=== PATIENT | male | born 1960 | race Caucasian/White ===

== ENCOUNTER → 2016-12-09 | Outpatient (CLI) | payer BC ==
--- NOTE | 2016-12-09 13:21 | PCVCIMAG ---
APPROVED REPORT Exam: Stress Echocardiogram Patient Location: Echo lab Stress Nurse: Emiliana Dominguez RN Status: routine Ht: 5 ft 6 in HR: 73 bpm BP: 132/80 mmHg Rhythm: NSR Medical History Medical History: HTN, tachycardia Cardiac Risk Factors: HTN, Hyperlipidemia, FHX of CAD Pretest Chest Pain Characteristics: No chest pain Exercise History: Indeterminate Procedure The patient underwent an Exercise Stress Test using the Arvind Protocol. Blood pressure, heart rate, and EKG were monitored. An Echocardiogram was performed by chemical research technician in four stages in quad fashion. At peak stress, four selected images were obtained and placed side by side with resting images for comparison. Stress Test Details Stress Test: Exercise stress testing was performed using a Arvind protocol. HR Resting HR: 73 bpmMax Heart Rate (APMHR): 162 bpm Max HR Achieved: 169 bpmTarget HR (85% APMHR): 137 bpm % of APMHR: 104 Recovery HR: 121 bpm HR response to stress: Normal HR response to stress BP Resting BP: 132/80 mmHg Max BP: 168/70 mmHg Recovery BP: 180/70 mmHg ECG Resting ECG: Sinus Rhythm Stress ECG: Sinus Rhythm, NSSTT changes ST Change: Horizontal ST depression Maximum ST Deviation: 2.1 mm Arrhythmia: None Recovery ECG: Sinus Rhythm Recovery ST Change: Non-ischemic Recovery ST Deviation: 0.9 mm Recovery Arrhythmia: None Clinical Reason for Termination: Maximal effort Stress Symptoms: none Exercise duration: 9 min 37 sec Highest Stage Achieved: Stage 4: 4.2 mph at 16% grade. Exercise capacity: 12.1 METs Overall Exercise Capacity for Age: Average Angina Score: None Stress ECG Conclusion Childers Treadmill Score is -1.5 which is Moderate risk. Pre-Stress Echo The resting Echocardiogram showed normal left ventricular contractility with an estimated Ejection Fraction of about 55-60%. Normal wall motion in all segments on baseline images. Post-Stress Echo The stress Echocardiogram showed normal left ventricular contractility with an estimated Ejection Fraction of about 65-70%. Normal augmentation of wall motion in all segments on post stress images. Clinical No clinical or ECG evidence for ischemia. Conclusion Clinical Response: Non-ischemic Exercise Capacity: Average Stress ECG Response: Non-ischemic Stress Echo Images: Non-ischemic No clinical, EKG or echocardiographic evidence for ischemia. No echocardiographic evidence for exercise induced ischemia. Normal stress echocardiogram with maximal exercise stress. <Conclusion> No clinical, EKG or echocardiographic evidence for ischemia. No echocardiographic evidence for exercise induced ischemia. Normal stress echocardiogram with maximal exercise stress.
== END | disposition home or self-care (01) ==
LOC: PCVCIMAG 09:39
PROVIDERS: ATTEND Internal Medicine Cardiovascular Disease
DX: I10 Essential (primary) hypertension (principal); E78.00 Pure hypercholesterolemia, unspecified; R00.0 Tachycardia, unspecified; R53.83 Other fatigue; Z82.49 Family history of ischemic heart disease and other diseases of the circulatory system; Z87.891 Personal history of nicotine dependence
CPT/HCPCS: 80061; 93005; 93325; 93351; G0463